=== PATIENT | male | born 1940 | race Caucasian/White ===

== ENCOUNTER → 2021-03-13 | Outpatient (CLI) | payer MEDICARE, OTHER ==
[~2021-03-13] MED LIST: ASPI-84 PO; BIOTIN; E400C PO; LISI40TA PO; LOSA50TA6 PO; OMEP20TA2 PO; OMG1KC PO; PROPRANOLOL; ROSU20TA14 PO; [UNRECOGNIZED DRUG - CODE] PO
--- NOTE | 2021-03-13 19:07 | Diagnostic Imaging Report ---
PROCEDURE: US Renal Bilateral. TECHNIQUE: Multiple real-time grayscale images were obtained over the kidneys in various projections bilaterally. INDICATION: Disorder of kidney and ureter. There are no prior studies available for comparison. Both kidneys were identified. The right kidney measures 9.6 x 4.5 x 5.9 cm while the left kidney is estimated to be 10.1 x 4.3 x 5.0 cm. There is no evidence for a solid renal mass or for hydronephrosis of either kidney. There is no shadowing from the kidneys to suggest nephrolithiasis either. The renal cortices are normal in thickness and echogenicity. The bladder was imaged during the course of the exam. The bladder is only partially filled and consequently not well evaluated. There is no obvious bladder abnormality evident. Neither ureteral jet could be visualized. IMPRESSION: 1. There is no evidence for a solid renal mass or for an acute abnormality of either kidney. 2. There is no sign of chronic medical renal disease. 3. The urinary bladder is grossly unremarkable. Dictated by: Dictated on workstation # [id number]
== END ==
LOC: RAD 14:45
PROVIDERS: ATTEND Family Medicine
DX: N28.9 Disorder of kidney and ureter, unspecified (principal)
CPT/HCPCS: 76770